=== PATIENT | male | born 1995 | race African-American/Black ===

== ENCOUNTER 2019-03-21 19:02 | Emergency (ER) | payer SELFPAY ==
[~2019-03-21] VITALS: Ht 170.2 cm; Wt 63.5 kg
[2019-03-21 19:23] VITALS: BP 155/94
[2019-03-21] MEDS ORDERED: ACETAMINOPHEN/CODEINE#3 (300/30mg) TAB PO ONE (23:15)
== END 2019-03-22 00:23 | disposition home or self-care (01) ==
LOC: ER 19:02
DX: S92.301A Fracture of unspecified metatarsal bone(s), right foot, initial encounter for closed fracture (principal); X50.1XXA Overexertion from prolonged static or awkward postures, initial encounter; Y93.51 Activity, roller skating (inline) and skateboarding; Y99.8 Other external cause status; Y92.89 Other specified places as the place of occurrence of the external cause
CPT/HCPCS: 29515; 73610; 73700

== ENCOUNTER 2022-11-07 15:53 | Emergency (ER) | payer OTHER ==
[~2022-11-07] VITALS: Ht 172.7 cm; Wt 64.0 kg
[2022-11-07 16:05] VITALS: BP 155/103
[2022-11-07] MEDS ORDERED: MUPI2OIN2 EX (16:08)
[2022-11-07] MEDS ORDERED: AMOX-277 PO (16:08)
[2022-11-07] MEDS ORDERED: TETANUS-DIPTH-ACEL PERTUSSIS 0.5ML SYR Tdap IM ONE (16:15)
== END 2022-11-07 16:26 | disposition home or self-care (01) ==
LOC: ER 15:53
DX: S71.031A Puncture wound without foreign body, right hip, initial encounter (principal); W54.0XXA Bitten by dog, initial encounter; Y93.89 Activity, other specified; Y92.89 Other specified places as the place of occurrence of the external cause; Y99.0 Civilian activity done for income or pay
CPT/HCPCS: 90471; 90715